=== PATIENT | male | born 1970 | race Hispanic/Latino ===

== ENCOUNTER 2017-11-04 23:11 | Emergency (ER) | payer BC ==
[2017-11-04] MEDS ORDERED: hydrALAZINE 10 MG TAB ONE (23:37)
[2017-11-04] MEDS ORDERED: Ketorolac Tromethamine 30 MG/ML VIAL ONE (23:37)
== END 2017-11-05 | disposition home or self-care (01) ==
LOC: MADERS 23:11
DX: I10 Essential (primary) hypertension (principal); G44.209 Tension-type headache, unspecified, not intractable
CPT/HCPCS: 96372; J1885

== ENCOUNTER 2017-11-07 10:18 | Outpatient (CLI) | payer BC ==
--- NOTE | 2017-11-07 11:49 | RAD ---
3 VIEWS LUMBAR SPINE: Date: 11/07/17 COMPARISON: None. HISTORY: Low back pain with sciatica. FINDINGS: Five lumbar-type vertebral bodies are present. Pedicles are intact on frontal imaging. Lateral imagin g demonstrates normal vertebral body height and alignment. There is mild disc space narrowing and ant erior osteophyte formation at L1-2. No acute osseous abnormality is noted. IMPRESSION: No acute findings. POS: YASMANI
--- NOTE | 2017-11-07 12:10 | RAD ---
FIVE VIEWS CERVICAL SPINE INCLUDING AP AND LATERAL AND BOTH OBLIQUE AND OPEN MOUTH ODONTOID VIEWS: HISTORY: Neck pain. FINDINGS: Five views cervical spine demonstrate disk space height loss with anterior and posterior osteophytes at C5-6 and C6-7. Left C5-6 and right C6-7 neural foraminal narrowing is seen due to uncovertebral o steophyte hypertrophy. No evidence of acute cervical spine fracture is seen. IMPRESSION: Lower cervical changes of spondylosis. POS: YASMANI
== END 2017-11-07 10:19 | disposition home or self-care (01) ==
LOC: MADRAD 10:18
PROVIDERS: ATTEND Family Medicine
DX: M54.40 Lumbago with sciatica, unspecified side (principal); M54.2 Cervicalgia; M47.892 Other spondylosis, cervical region
CPT/HCPCS: 72050; 72100